=== PATIENT | female | born 1965 | race Caucasian/White ===

== ENCOUNTER → 2017-12-14 | Outpatient (CLI) | END | disposition home or self-care (01) ==

== ENCOUNTER 2019-01-01 12:06 | Inpatient (IN) | payer MEDICAID, OTHER ==
[~2019-01-01] VITALS: Ht 160 cm; Wt 55.1 kg
[~2019-01-01 12:06] MED LIST: APIX5TAB PO; CALC1TAB79 PO; FURO20TA3 PO; POTA20TA15 PO; PROC10TA10 PO; SPIR25TA PO; TRAZ-149 PO
[2019-01-01 12:24] VITALS: Ht 160 cm; Wt 55.1 kg
--- NOTE | 2019-01-01 13:00 | EN ---
Date/Time of Note Date/Time of Note DATE: 01/01/19 TIME: 12:59 ER Progress Note 53-year-old female with history of breast cancer with liver metastasis presents for abdominal pain and distention. Patient is coming by her daughter who states that patient is here for paracentesis. She had paracentesis about 2 weeks ago. Medical screening exam initiated and lab/imaging tests ordered. Patient will be seen by another provider. ARMANDO RIVAS DO Jan 01, 2019 13:00
--- NOTE | 2019-01-01 15:42 | ERD ---
ER Documentation Chief Complaint Chief Complaint sent by pcp - abdominal distention/pain for paracentesis HPI 53-year-old woman with a history of metastatic breast cancer with metastases to liver presenting with recurrent abdominal distention and ascites. She underwent paracentesis 2 weeks ago while in [place] and is here with increasing abdominal distention and discomfort requesting paracentesis. She denies chest pain or shortness of breath, no fevers or chills, no blood per rectum or melena, no vomiting or diarrhea. ROS All systems reviewed and are negative except as per history of present illness. Medications Home Meds Reported Medications Calcium Carbonate/Vitamin D3 (Oysco 500+D Tablet) 1 Each Tablet, 1 EACH PO DAILY, TAB 01/01/19 Prochlorperazine* (Prochlorperazine*) 10 Mg Tablet, 10 MG PO Q6H PRN for NAUSEA, TAB 01/01/19 Furosemide* (Furosemide*) 20 Mg Tablet, 20 MG PO DAILY, #60 TAB 01/01/19 Spironolactone* (Aldactone*) 25 Mg Tablet, 25 MG PO DAILY, #30 TAB 01/01/19 Apixaban* (Eliquis*) 5 Mg Tablet, 5 MG PO BID, TAB 01/01/19 Potassium Chloride* (K-Dur*) 20 Meq Tab.prt.sr, 40 MEQ PO BID, TAB.SA 01/01/19 Allergies Allergies: Coded Allergies: No Known Allergy (Unverified , 01/01/19) PMhx/Soc Metastatic breast cancer with mets to the axial skeleton and liver, recurrent ascites History of Surgery: Yes (L HIP SX FROM FRACTURE) Anesthesia Reaction: No Hx Neurological Disorder: No Hx Respiratory Disorders: No Hx Cardiac Disorders: No Hx Psychiatric Problems: No Hx Miscellaneous Medical Probl: Yes (BREAST CA WITH LIVER AND BONE METS. L ARM DVT) Hx Alcohol Use: No Hx Substance Use: No Hx Tobacco Use: No Smoking Status: Never smoker FmHx Family History: No diabetes Physical Exam Vitals Vital Signs Date Temp Pulse Resp B/P (MAP) Pulse Ox O2 O2 Flow FiO2 Time Delivery Rate 01/01/19 98.0 85 20 102/74 98 Room Air 16:51 (83) 01/01/19 98.0 90 20 111/72 98 Room Air 15:45 (85) 01/01/19 98.0 84 20 112/82 98 Room Air 15:01 (92) 01/01/19 97.9 93 24 105/70 98 12:24 (82) Physical Exam GENERAL: Elderly, chronically debilitated woman, appears emaciated, nontoxic, afebrile CARDIAC: Regular rate and rhythm, no murmurs rubs or gallops LUNGS: Clear bilaterally no wheezing crackles or stridor ABDOMEN: Protuberant, distended abdomen, evidence of ascites, nontender, bowel sounds normoactive EXTREMITIES: No clubbing cyanosis or edema, calves are bilaterally symmetrical, no Homans sign, no popliteal cord sign. Distal pulses equal and bilateral Result Diagram: 01/01/19 1312 01/01/19 1312 Results 24 hrs Laboratory Tests Test 01/01/19 13:12 White Blood Count 3.3 10^3/ul Red Blood Count 3.16 10^6/ul Hemoglobin 10.6 g/dl Hematocrit 33.2 % Mean Corpuscular Volume 105.1 fl Mean Corpuscular Hemoglobin 33.5 pg Mean Corpuscular Hemoglobin Concent 31.9 g/dl Red Cell Distribution Width 15.9 % Platelet Count 113 10^3/UL Mean Platelet Volume 11.1 fl Immature Granulocytes % 0.300 % Neutrophils % 71.5 % Lymphocytes % 16.2 % Monocytes % 10.8 % Eosinophils % 0.3 % Basophils % 0.9 % Nucleated Red Blood Cells % 0.0 /100WBC Immature Granulocytes # 0.010 10^3/ul Neutrophils # 2.4 10^3/ul Lymphocytes # 0.5 10^3/ul Monocytes # 0.4 10^3/ul Eosinophils # 0.0 10^3/ul Basophils # 0.0 10^3/ul Nucleated Red Blood Cells # 0.0 10^3/ul Prothrombin Time 15.4 Sec Prothrombin Time Ratio 1.2 INR International Normalized Ratio 1.21 Activated Partial Thromboplast Time 30.2 Sec Sodium Level 136 mmol/L Potassium Level 4.4 mmol/L Chloride Level 104 mmol/L Carbon Dioxide Level 26 mmol/L Anion Gap 6 Blood Urea Nitrogen 19 mg/dl Creatinine 0.51 mg/dl Est Glomerular Filtrat Rate mL/min > 60 mL/min Glucose Level 88 mg/dl Calcium Level 8.1 mg/dl Total Bilirubin 2.8 mg/dl Direct Bilirubin 0.00 mg/dl Indirect Bilirubin 2.8 mg/dl Aspartate Amino Transf (AST/SGOT) 46 IU/L Alanine Aminotransferase (ALT/SGPT) 31 IU/L Alkaline Phosphatase 361 IU/L Troponin I < 0.012 ng/ml B-Type Natriuretic Peptide 65 PG/ML Total Protein 7.5 g/dl Albumin 2.8 g/dl Globulin 4.70 g/dl Albumin/Globulin Ratio 0.59 Lipase 119 U/L Current Medications Medications Dose Sig/Benigno Start Time Status Last (Trade) Ordered Route PRN Stop Time Admin Dose Reason Admin Lidocaine 5 ml STK-MED 01/01/19 DC (Xylocaine ONCE .ROUTE 17:41 1% (Mpf)) 01/01/19 17:42 Procedures/MDM IV line was established patient was placed on diagnostic cardiac sonographer rhythm strip revealed a sinus rhythm at about 80 bpm with upright P and T waves. Patient was afebrile EKG performed, read by me revealed a normal sinus rhythm 88 bpm, normal axis, na rrow QRS complex, no concerning ST elevations or depressions noted CBC revealed mild pancytopenia consistent with her history, platelets are 113,000, electrolytes unremarkable, liver function tests unremarkable, INR elevated at 1.2, troponin was negative. Paracentesis was ordered and performed by radiology department, 5 L of ascitic fluid was removed. Differential diagnoses considered, included but not limited to acute coronary syndrome, pulmonary embolism, aortic dissection, abdominal aortic aneurysm, sepsis, stroke, meningitis, encephalitis, pneumonia, appendicitis, cholecystitis, bowel obstruction, pyelonephritis, nephrolithiasis, cystitis, as well as metabolic, hematologic, and electrolyte abnormalities. As well as abscess, cellulitis, fractures, and dislocations. Patient feels much better at this time, and vital signs are normal, symptoms have improved. I did give strict instructions to return to the ED if symptoms continue or worsen, patient will otherwise follow-up with primary care physician. Patient understood instructions and agreed to plan. Disclaimer: Inadvertent spelling and grammatical errors are likely due to EHR/dictation software use and do not reflect on the overall quality of patient care. Also, please note that the electronic time recorded on this note does not necessarily reflect the actual time of the patient encounter. Departure Diagnosis: Primary Impression: Metastatic breast carcinoma Additional Impressions: Liver metastasis Ascites Ascites type: malignant Qualified Codes: R18.0 - Malignant ascites Pancytopenia Condition: Stable ZOHRABIAN,JUSTUS MD Jan 01, 2019 15:42
[2019-01-01] MEDS ORDERED: LIDOCAINE 1% (MPF) 5 ML VIAL ONE (17:41)
[2019-01-01] MEDS ORDERED: morphine 2 MG INJ IV PRN (20:00)
[2019-01-01] MEDS ORDERED: ONDANSETRON 4 MG INJ IV PRN (20:00)
[2019-01-01] MEDS ORDERED: NACL 0.9% 3 ML SYG IV SCH (20:00)
[2019-01-01] MEDS ORDERED: DOCUSATE SODIUM 100 MG CAP PO PRN (20:00)
[2019-01-01] MEDS ORDERED: ALBUMIN HUMAN 25% 100 ML IV ONE (20:00)
[2019-01-01] MEDS ORDERED: ZOLPIDEM 5 MG TAB PO PRN (20:00)
[2019-01-01] MEDS ORDERED: HYDROCODONE/APAP (5/325) TAB PO PRN (20:00)
[2019-01-01 22:10] VITALS: BP 98/61; PULSE 91; RESP 18
[2019-01-02] MEDS ORDERED: PENDING SANTYL ORDER FOR WOUND CARE XX PRN (01:30)
[2019-01-02 02:00] VITALS: BP 91/52; PULSE 100; RESP 17
[2019-01-02] MEDS: PANTOPRAZOLE (EC) 40 MG TAB PO SCH (06:13)
--- NOTE | 2019-01-02 06:26 | HP ---
DATE OF ADMISSION: 01/01/2019 CHIEF COMPLAINT AND HISTORY OF PRESENT ILLNESS: The patient is a 53-year-old postmenopausal female w ith metastatic breast cancer with mets to the liver and bone, and initially presented as a pathologic al fracture of the left femoral neck in June 2017, presents with increasing shortness of breath, g etting increasing abdominal distention with refractory ascites, getting a tap every 2 weeks in [place], from where she has recently relocated here and the patient was evaluated in the Emergency Room , had paracentesis done and patient is being admitted to medical floor. MEDICATIONS: 1. Eliquis 5 mg b.i.d. 2. Lasix 20 mg daily. 3. KCl 20 mEq every day. 4. Zofran 4 mg q.8h. p.r.n. 5. Lactulose 20 grams t.i.d. The patient was hospitalized in [place] with acute hepatic encephalopathy with recurrent ascites in 2018 and apparently encephalopathy resolved with lactulose. The patient has had several course s of chemotherapy for multiple skeletal mets. The pathology initially was consistent with invasive d uctal CA in both the bone and the breast consistent with grade III findings. The patient had radiati on therapy and then treated with palbociclib, letrozole and Xgeva for 3 months with good response wit h complete resolution of the fungating breast mass on the chest wall. On CT scans did show marked re sponse and subsequently her tumor marker levels increased and she was continued on palbociclib and c hanged from the letrozole to fulvestrant, along with Xgeva for 6 months. In the fall the CAT scan and the bone scan showed progression of disease in the bones and the liver. The patient was st arted on Abraxane therapy for visceral mets with good response. After 6 months, the patient showed e vidence of new mets. In 04/2018, patient was started on Abraxane therapy and 09/2018 there was new p rogression on the bone scan. Abraxane was stopped and then started on Halaven. FAMILY HISTORY: The patient has 5 children. She is . SOCIAL HISTORY: Nonsmoker, does not drink, does not use any illicit drugs. SOCIAL HISTORY: The patient is , has got 5 children. REVIEW OF SYSTEMS: HEAD: No history of headaches. The patient with generalized weakness. EYES: No blurry vision or glaucoma. ENT: Noncontributory. NECK: No history of thyroid disease. CHEST: Recent shortness of breath. No history of hemoptysis. CARDIOVASCULAR: No PND, orthopnea, palpitations. GASTROINTESTINAL: No constipation, diarrhea. The patient complains of increased abdominal girth. GENITOURINARY: No dysuria, hematuria, kidney stones. The patient does have very poor appetite. PHYSICAL EXAMINATION: GENERAL: The patient is an average-built female who presently appears weak, icteric. VITAL SIGNS: Temperature 98.0, blood pressure is 89/62, heart rate 96 per minute, O2 sats 98% on scooter m air. HEENT: Head normocephalic. Moderate pallor. Slight icterus present. Tongue is coated, dry. NECK: Supple. No thyromegaly, bruits or lymphadenopathy. LUNGS: Clinically clear anteriorly. HEART: S1, S2 heard, no definite gallops. ABDOMEN: Soft. Moderate ascites. No hepatosplenomegaly. EXTREMITIES: 2+ edema. Negative asterixis noted. NEUROLOGIC: No localizing or lateralizing signs. LABORATORY DATA: WBC count 3.3, hematocrit 33.3, platelet count 13,000. Sodium 136, potassium 4.4, total bilirubin 2.8, alkaline phosphatase of 361, albumin is 2.8. IMPRESSION: 1. Metastatic invasive ductal carcinoma, grade III, stage IV. 2. Metastatic disease to the liver and bone with liver failure, with refractory ascites. 3. Pancytopenia secondary to chemotherapy. PLAN: The patient does not appear encephalopathic at this time. Her blood pressure is borderline po st-paracentesis, so we will opt to hold off on diuretics. Consider gentle hydration if necessary. W ill initiate intravenous albumin. Restart Eliquis starting tomorrow. Closely monitor fluid and elec trolyte balance. Start the patient on Lasix and Aldactone tomorrow, albumin transfusions as needed. Narcotic analgesia. Observe for encephalopathy. Will discuss further oncological management with Antwan Gayle. Overall, prognosis is guarded. Dictated By: JERSEY HILLMAN MD, SR/MISAEL Conf#: [id number] DID#: [id number]
[2019-01-02 08:00] VITALS: BP 91/57; PULSE 69; RESP 20
[2019-01-02] MEDS ORDERED: ALBUMIN HUMAN 25% 100 ML IV ONE (11:30)
--- NOTE | 2019-01-02 12:07 | PN ---
DATE: 01/02/2019 SUBJECTIVE: The patient overall feels better. Did sleep last night. Appetite is poor. VITAL SIGNS: Temperature 97.8, blood pressure 91/57, O2 sats 98% on room air. HEENT: Severe pallor, mild icterus. LUNGS: Clinically clear. HEART: S1, S2 with no definite gallops. ABDOMEN: Mild ascites. No hepatosplenomegaly. Prominent sacral prominence with skin color changes noted. EXTREMITIES: 1+ edema. LABORATORY DATA: Sodium 138, potassium 4.1, BUN 20, creatinine 0.5, alkaline phosphatase down to 250 , albumin down to 2.3, hematocrit 25, WBC count 2.5, platelet count 91,000. IMPRESSION: 1. Metastatic invasive ductal CA to the liver and bone. 2. Liver failure with refractory ascites. 3. Severe anemia with pancytopenia. 4. Borderline blood pressure. 5. History of deep venous thrombosis of the upper extremities, on Eliquis. PLAN: We will restart Eliquis starting today. I have discussed with Dr. Gayle from [facility]. Consider transfusion if necessary, will give 1 more bolus of IV albumin. Will opt to hold o ff on diuretics now in view of borderline blood pressures. Dictated By: JERSEY HILLMAN MD, SR/MISAEL Conf#: [id number] DID#: [id number]
[2019-01-02] MEDS: APIXABAN 5 MG TABLET PO SCH ×2 (12:24→20:46)
[2019-01-02 14:00] VITALS: BP 104/69; PULSE 76; RESP 18
[2019-01-02 20:00] VITALS: BP 108/62; PULSE 98; RESP 18
[2019-01-02] MEDS: BALSAM PERU/CASTOR OIL 60 GM TUBE TOP SCH (20:47)
--- NOTE | 2019-01-02 21:06 | QN ---
Documentation Comment Oncology consultation dictated. 53 y/o female with metastatic ER/NV positive carcinoma of the Lt breast. Has skeletal and visceral mets. Recently has been requiring large volume therapeutic paracenteses every 2 weeks. Has been receiving care in [place] Pt was initially treated with letrazole and Ibrance. This was switched to fulvestrant and Ibrance. Further progression caused switch to chemotherapy with Nab-paclitaxel and more recently to Halaven. Pt and family desire further therapy. Has never received tamoxifen which works by different mechanism than the AI's. Other chemo which can be given as single agents include capecitabine (orally), gemcitabine or vinorelbine. If ascitic fluid is positive for malignant cells there could be testing for PDL- 1 expression and NTRAK gene fusion. Have also suggested placement of Pleurx catheter to help minimize symptoms due to ascites. Thank You, Montrell Gayle MD. MONTRELL GAYLE MD Jan 02, 2019 21:06
--- NOTE | 2019-01-02 22:23 | PN ---
DATE: 01/02/2019 MEDICAL ONCOLOGY CONSULTATION REQUESTING PHYSICIAN: Dr. Chente Hillman MD REASON FOR CONSULTATION: Metastatic breast carcinoma. Dear Dr. Hillman: Thank you very much for asking me this very interesting and pleasant patient in oncologic consultatio n. As you may recall, I did see this patient initially almost 2 years ago. he patient is a 53-year-o ld female who actually lives in [place] where she has been receiving medical care. The patient does have a diagnosis of metastatic carcinoma of the breast. The tumor originally was diagnosed in 06/2017 when the patient was found to have a pathologic fractur e of the left femur. The patient at that time did have a breast mass on the left. Other studies at that time did show wid espread metastatic disease. There were pulmonary nodules as well as diffuse skeletal metastases. The tumor was found to be estrogen and progesterone receptor positive but HER-2 negative. The patient initially was treated with tell Palbociclib, Letrozole, and denosumab. She had an excell ent response to this with decrease in pain. The patient, however, then developed new lesions. She w as at that time continued on the palbociclib, but the letrozole was discontinued and the patient was started on fulvestrant. The patient then, however, did show progression of disease once again. The patient was started then in 04/2018, took chemotherapy for the first time. The patient was started on NAB, paclitaxel as a si ngle agent. have any be paclitaxel as a single agent. If there was in 5 or 6 months, again, further progression and the patient was switched to Halaven. The patient's last treatment apparently was approximately 1 month ago. The patient unfortunately has also developed hepatic problems. The patient has had ascites for appro ximately the past 4 or 5 months. Apparently, she has been having undergoing large volume paracentese s every 2 or 3 weeks. The patient's daughter states as much as 9 liters is removed at a time. The p atient is treated at that time with albumin in order to maintain blood pressure. The patient's family has brought her to [place] where her daughter lives in order to explore furt her therapies. The patient wishes further therapy at this time. Past history as mentioned, does include the carcinoma of the breast. Apparently, the patient has ske letal and hepatic metastases. Other past medical problems include the pathologic fracture of the lef t femur and there was a nail placed. Patient has also had some type of eye surgery in the past. Oth er problems have included DVT in the left upper extremity. The patient has also received radiation therapy to the pathologic fracture, left femur. The patient has also had a port placed in the right anterior chest. The patient on admission had a white count of 3300, hemoglobin 10.6, hematocrit 32.2, MCV 105.1 and p latelet count 113,000. The patient did undergo a paracentesis yesterday. Approximately 5 liters wer e removed. Unfortunately, this was all disposed of and not sent to the laboratory for any type of ev aluation. Today, the patient's white count is 2500 with an absolute neutrophil count of 1600, hemog lobin 7.9, hematocrit 25.3, and platelet count is 91,000. Today, the patient's sodium is 138, potass ium 4.1, creatinine 0.5, BUN 20, calcium 7.6, albumin 2.3, globulin 3.4, alkaline phosphatase 250, T 32, ALT 25, total bilirubin 2.0, direct bilirubin is 0. On admission, the patient was taking prochlorperazine for nausea, furosemide, spironolactone, Apixaba n and potassium chloride. She has no known allergies. Family history remarkable in that there are other members with malignancies. It is not clear if they were breast carcinomas. There has never been BRCA testing down. The patient as noted does live in [place], [place]. She lives with her son. Physical examination at this time reveals a well-developed, but cachectic female, who is weak, but in no acute distress. Temperature 98.6, pulse 76 per minute and regular, respirations 18, blood pressu re 104/69, pulse oximetry is 96% on room air. SKIN: No ecchymoses, no petechiae or rashes. HEENT: Normocephalic. No evidence of trauma. Pupils equal, round, react to light and accommodation . Sclerae are trace icterus. Oral mucosa is moist without lesions. There is alopecia. NECK: Supple. No jugular venous distention or thyroid enlargement. CHEST: Decreased breath sounds in both bases with an elevated diaphragm. There is a Port-A-Cath in place in the right anterior chest wall. HEART: Regular sinus rhythm, no S3, S4 or murmurs. ABDOMEN: Markedly distended with obvious fluid wave and ascites. EXTREMITIES: No clubbing. No edema or cyanosis. No palpable cords or Homans sign. NEUROLOGIC: Normal except for marked weakness. DISCUSSION: As noted, this patient does have widespread metastatic carcinoma of the breast that was initially estrogen and progesterone receptor positive but HER-2/sosa negative. The patient has received hormonal therapy with initial response. At the same time, the patient recei josefa additional therapy with ____. The patient's hormonal therapy has consisted of letrozole and this was then switched to fulvestrant. This patient has never received tamoxifen and there is a possibility that the patient would respond t o tamoxifen as this works by different mechanism of action than the aromatase inhibitors. The patient's chemotherapy has included only Nab-paclitaxel and Halaven. There are multiple chemothe rapeutic agents that she has not received, but it is unclear that she can actually tolerate them. Possible therapies include the use of capecitabine as a single agent. This can be given orally. Oth er treatments could include gemcitabine as a single agent given on days 1 and 8 out of a 21-day sched ule. Also been a vinorelbine. Combination chemotherapy I feel would be very difficult in this patient given her pancytopenia and fr agile state. On as noted. Unfortunately, the ascitic fluid removed on yesterday's paracentesis was disposed of. It is unclear whether there are malignant cells within this fluid. If there were malignant cells, then further testing could be done for PD-L1 expression as well as NTr ak fusion that is fusion abnormalities. Also, as noted, the patient does have a family history of malignancies. It does not appear that gene tic testing has ever been done. If this patient were found to be BRCA positive, then the use of a PA RP inhibitor could be considered as well. Lastly for comfort measures, I would suggest the placement of a PleurX catheter into the peritoneal c avity show that peritoneal fluid could be drained on a regular basis, keeping the abdominal distentio n to a minimum. I discussed these possibilities with the patient and her family. They would like to proceed, but thi s may be technically difficult situation. Once again, thank you very much for the opportunity of participating in the medical care of this very interesting and pleasant patient. I will be able to follow this patient with you and assist in her oncologic evaluation and follow up as necessary. Dictated By: MONTRELL WEST MD SR/NTS Conf#: [id number] DID#: [id number] CC: CHENTE HILLMAN MD;*EndCC*
[2019-01-03 02:00] VITALS: BP 119/68; PULSE 98; RESP 18
[2019-01-03] MEDS: PANTOPRAZOLE (EC) 40 MG TAB PO SCH (05:34)
[2019-01-03 08:00] VITALS: BP 96/51; PULSE 64; RESP 20
[2019-01-03] MEDS ORDERED: CALCIUM/VITAMIN D (500/200) TAB PO SCH (09:00)
[2019-01-03] MEDS: BALSAM PERU/CASTOR OIL 60 GM TUBE TOP SCH (09:00)
[2019-01-03] MEDS: APIXABAN 5 MG TABLET PO SCH (09:49)
[2019-01-03 14:00] VITALS: BP 109/69; PULSE 97; RESP 20
[2019-01-03] MEDS ORDERED: HEPARIN (100 UNITS/ML) 5 ML SYG CATHETER ONE (17:00)
--- NOTE | 2019-01-04 03:20 | DS ---
DATE OF ADMISSION: 01/02/2019 DATE OF DISCHARGE: 01/03/2019 FINAL DIAGNOSES: 1. Malignant refractory ascites secondary to metastatic breast carcinoma to the liver. 2. Severe anemia with pancytopenia. 3. History of deep venous thrombosis of the upper extremities, on Eliquis. HOSPITAL COURSE: The patient is a 53-year-old postmenopausal female with metastatic breast cancer wi th mets to the liver and bone, presented initially with a pathological fracture of the left femoral n marcel[place] in June 2017, presenting with increasing shortness of breath, abdominal distention with refrac tory ascites, getting tapped every 2 weeks in [place], and she has recently relocated here, evalu ated in the emergency room and was admitted. The patient had abdominal paracentesis done and the blo od pressure was borderline in the 90s. The patient was previously on diuretics which were being held . Her hematocrit was dropped to 25.3 with a platelet count of 91,000. WBC count 2.5 and patient was evaluated by Dr. Gayle, who recommended that we consider putting of PleurX catheter for drainage. Arrangements were made to be done that as an outpatient while holding Eliquis for at least 2 days pr ior and further options regarding chemotherapy will be discussed with the patient by Dr. Gayle. Dictated By: JERSEY HILLMAN MD SR/NTS Conf#: [id number] DID#: [id number]
== END 2019-01-03 17:50 | disposition home or self-care (01) | DRG 435 ==
LOC: E/R 12:06 → PP2 18:47 → OBSVTOIN 01-02 08:01
PROVIDERS: ADMIT Internal Medicine; ATTEND Internal Medicine
PROC: 0W9G3ZZ Drainage of Peritoneal Cavity, Percutaneous Approach (ICD-10-PCS; principal; 2019-01-01)
DX: C78.7 Secondary malignant neoplasm of liver and intrahepatic bile duct (principal); D61.810 Antineoplastic chemotherapy induced pancytopenia; C79.51 Secondary malignant neoplasm of bone; R64 Cachexia; R18.0 Malignant ascites; C50.919 Malignant neoplasm of unspecified site of unspecified female breast; K72.90 Hepatic failure, unspecified without coma; N95.9 Unspecified menopausal and perimenopausal disorder; Z68.21 Body mass index [BMI] 21.0-21.9, adult; Z17.0 Estrogen receptor positive status [ER+]; Z86.718 Personal history of other venous thrombosis and embolism; Z79.02 Long term (current) use of antithrombotics/antiplatelets
CPT/HCPCS: 80048; 80053; 82248; 83010; 83615; 83690; 83735; 83880; 84443; 84484; 85025; 85610; 85730; 86850; 86900; 86901; 93005; G0378; J1642; J2270; P9047

== ENCOUNTER 2019-01-10 10:03 | Day surgery (SDC) | payer MEDICAID ==
[~2019-01-10] VITALS: Ht 144.8 cm; Wt 56.7 kg
[2019-01-10 10:41] VITALS: Ht 144.8 cm; Wt 56.7 kg
[2019-01-10 10:43] VITALS: BP 110/72; PULSE 95; RESP 16
[2019-01-10] MEDS ORDERED: MIDAZOLAM 1 MG/ML 2 ML INJ ONE (12:16)
[2019-01-10] MEDS ORDERED: FENTAnyl 50 MCG/ML VIAL ONE (12:16)
[2019-01-10] MEDS ORDERED: LIDOCAINE 1% (MDV) 20 ML INJ ONE (12:16)
[2019-01-10] MEDS ORDERED: SOD CHLORIDE 0.9% 500 ML ONE (13:28)
[2019-01-10 13:32] VITALS: BP 98/61; PULSE 86; RESP 18
[2019-01-10 13:40] VITALS: BP 102/59; PULSE 87; RESP 17
--- NOTE | 2019-01-10 14:05 | HPN ---
Date/Time of Note Date/Time of Note DATE: 01/10/19 TIME: 14:04 Interval H&P Admission Note Pt. seen H&P reviewed: No system changes MIKEY CARO MD Jan 10, 2019 14:04
--- NOTE | 2019-01-10 14:07 | RADRPT ---
PROCEDURE: TUNNELED PERITONEAL DRAIN PLACEMENT CLINICAL INDICATION: Malignant Ascites TECHNIQUE: MEDICATIONS: Versed and Fentanyl were administered by the nurse who monitored the patient. TECHNIQUE/FINDINGS: Informed consent was obtained following careful explanations of the risks and arielle efits of the procedure. Preliminary ultrasound was obtained and demonstrates a moderate amount of asc ites. A recorded image was obtained. Moderate sedation time: 30 minutes Fluoroscopy time: 0.1 min Number of images: 3 Cap, mask, sterile gown, sterile gloves, large sterile sheath, hand hygiene with 2% chlorhexidine was utilized. The patient was placed supine on the angiographic table. The patients right lower abdomen was prep ped and draped in the usual sterile fashion. 1% lidocaine was utilized. The peritoneal space was punc tured with a micropuncture needle under direct ultrasound guidance and a guide wire was advanced into the ascites as confirmed by fluoroscopy. The needle was exchanged for an introducer. A site in the patients anterior abdominal wall was selected and 1% lidocaine with epinephrine was administered to the skin. A small an incision was made. The catheter was then tunneled retrograde from the incision in the abdomen towards the puncture site in the patients abdomen. A guidewire was advanced through the introducer in the patients abdome n and the introducer was exchanged over the wire for a peel-away sheath, which was placed in the ernestina toneal space. The catheter was advanced through the peel-away sheath and the sheath was removed. The tip of the catheter was placed in the peritoneal space. Approximately {<1000 cc of clear fluid>} were drained at the time of the procedure.. A photo spot image confirms proper positioning of the cathete r tip in the peritoneal space. The catheter was sutured to the patient's chest with 2-0 Ethilon suture. The incision in the chest wa s closed with a subcuticular 4-0 Vicryl suture. A sterile dressing was applied. The patient tolerated the procedure well COMPARISON: None FINDINGS: Ascites. RPTAT: QQ IMPRESSION: 1. Uncomplicated placement of a tunneled peritoneal drain. 2. The catheter is ready for use. .Jourdan Dueñas MD, MD Date Time Electronically viewed and signed by .Jourdan Dueñas MD, MD on 01/10/2019 14:06 .S/
== END 2019-01-10 14:55 | disposition home or self-care (01) ==
LOC: SDS 10:03
PROVIDERS: ATTEND Radiology Diagnostic Radiology
DX: R18.0 Malignant ascites (principal); C50.919 Malignant neoplasm of unspecified site of unspecified female breast; C78.7 Secondary malignant neoplasm of liver and intrahepatic bile duct; C79.51 Secondary malignant neoplasm of bone; R18.8 Other ascites; K72.90 Hepatic failure, unspecified without coma; D61.818 Other pancytopenia
CPT/HCPCS: 76942; 84702; J2250; J3010; J7040

== ENCOUNTER 2019-01-12 23:50 | Emergency (ER) | payer MEDICAID, OTHER ==
[~2019-01-12] VITALS: Ht 152.4 cm; Wt 53.6 kg
[2019-01-12 23:51] VITALS: Ht 152.4 cm; Wt 53.6 kg
[2019-01-13 00:14] VITALS: BP 97/61; PULSE 95; RESP 17
--- NOTE | 2019-01-13 00:47 | ERD ---
ER Documentation Chief Complaint Chief Complaint PARACENTESIS DONE SUNDAY; LEAKING FROM PROCEDURE SITE HPI 53-year-old female presents with family members. The patient has a history of hepatic malignancy. She just recently on Sunday had a drain placed to the peritoneum. The family has noted some leaking around 1 of the attempted sites. Patient denies any fevers or chills or significant abdominal pain. Leaking is been present for several days. The patient has follow-up with primary care physician on Sunday. ROS All systems reviewed and are negative except as per history of present illness. Medications Home Meds Reported Medications Calcium Carbonate/Vitamin D3 (Oysco 500+D Tablet) 1 Each Tablet, 1 EACH PO DAILY, TAB 01/01/19 Prochlorperazine* (Prochlorperazine*) 10 Mg Tablet, 10 MG PO Q6H PRN for NAUSEA, TAB 01/01/19 Furosemide* (Furosemide*) 20 Mg Tablet, 20 MG PO BID, #60 TAB 01/01/19 Spironolactone* (Aldactone*) 25 Mg Tablet, 25 MG PO DAILY, #30 TAB 01/01/19 Apixaban* (Eliquis*) 5 Mg Tablet, 5 MG PO BID, TAB 01/01/19 Potassium Chloride* (K-Dur*) 20 Meq Tab.prt.sr, 20 MEQ PO BID, TAB.SA 01/01/19 Allergies Allergies: Coded Allergies: No Known Allergy (Unverified , 01/10/19) PMhx/Soc History of Surgery: Yes (hip sx, paracentesis) Anesthesia Reaction: No Hx Neurological Disorder: No Hx Respiratory Disorders: No Hx Cardiac Disorders: No Hx Psychiatric Problems: No Hx Miscellaneous Medical Probl: No Hx Alcohol Use: No Hx Substance Use: No Hx Tobacco Use: No Smoking Status: Never smoker FmHx Family History: No diabetes Physical Exam Vitals Vital Signs Date Temp Pulse Resp B/P (MAP) Pulse Ox O2 O2 Flow FiO2 Time Delivery Rate 01/13/19 95 17 97/61 (73) 98 Room Air 00:14 01/12/19 97.6 95 19 104/57 96 23:51 (73) Physical Exam General: Well developed, well nourished, no acute distress Head: Normocephalic, atraumatic. Eyes: Pupils equally reactive, EOM intact ENT: Moist mucous membranes Neck: Supple, no lymphadenopathy Respiratory: Lungs clear bilaterally, no distress Cardiovascular: RRR, no murmurs, rubs, or gallops Abdominal: Protuberant with fluid wave. Peritoneal drain in place, sutures intact, no drainage erythema warmth or tenderness. Just medial to the site there appears to be a prior attempt of placement that has small dehiscence and leaking from that site. Ascitic fluid is clear : Deferred MSK: No edema, no unilateral swelling, 5/5 strength Neurologic: Alert and oriented, moving all extremities, normal speech, no focal weakness, no cerebellar signs Skin: No rash Psych: Normal mood Procedures/MDM Clinical exam consistent with leaking from attempted peritoneal drain placement. No signs or symptoms clinically for bacterial peritonitis. Patient is otherwise well-appearing and asymptomatic in the emergency room setting. Dermabond was applied to the site, observation with no further leaking was noted. Clean dressing applied to the site and peritoneal drain area. The patient has appropriate follow-up. Return precautions discussed and understood. No indication for paracentesis currently. The patient does not have an identifiable emergent medical condition that warrants inpatient hospitalization at this time. The patient is deemed safe for discharge with outpatient follow-up. We discussed follow up with the patient's primary care doctor within 24 to 48 hours as needed. We also discussed return to the emergency room for worsening symptoms or worsening condition. Outpatient referral: None required Discharge Medications: None required Departure Diagnosis: Primary Impression: S/P abdominal paracentesis Additional Impressions: Encounter for medical screening examination Malignant ascites Condition: Stable BHARATI RODAS MD Jan 13, 2019 00:47
== END 2019-01-13 02:19 | disposition home or self-care (01) ==
LOC: E/R 23:50
DX: Z00.01 Encounter for general adult medical examination with abnormal findings (principal); R18.0 Malignant ascites; Y84.4 Aspiration of fluid as the cause of abnormal reaction of the patient, or of later complication, without mention of misadventure at the time of the procedure; Z79.01 Long term (current) use of anticoagulants
CPT/HCPCS: 99282